=== PATIENT | male | born 1985 | race Two or more races ===

== ENCOUNTER 2024-07-08 20:57 | Emergency (ER) | payer OTHER ==
[~2024-07-08] VITALS: Ht 180.3 cm; Wt 108.9 kg
[2024-07-08] MEDS ORDERED: CEFTRIAXONE SODIUM 2,000 MG VIAL ONE (21:40)
[2024-07-08] MEDS ORDERED: CEFTRIAXONE SODIUM 2,000 MG VIAL IV ONE (21:45)
[2024-07-08 22:29] LABS: PH,URINE 6.5 (5.0-8.0); URINE APPEARANCE Clear; URINE BILIRRUBIN Negative (NEGATIVE); URINE BLOOD Negative; URINE COLOR Yellow; URINE GLUCOSE Negative (NEGATIVE); URINE KETONE Negative (NEGATIVE); URINE LEUKOCYTE Negative; URINE NITRATE Negative; URINE PROTEIN Negative (NEGATIVE)
[2024-07-08 22:32] LABS: URINE WBC 5.8 uL (0.0-23.2)
[2024-07-08 22:35] LABS: URINE CAST 0.14 uL (0.0-1.40); URINE RBC 0.2 uL (0.0-20.8)
[2024-07-08 23:25] LABS: HEMATOCRIT 46.2 % (39.0-48.0); HEMOGLOBIN 15.8 g/dL (13-16.00); MEAN CELL VOLUME 89.1 fL (80.0-100.00); MEAN CORPUSCULAR HEMOGLOBIN 30.5 pg (27.00-32.0); MEAN CORPUSCULAR HGB CONC 34.3 g/dl (32.0-36.0); PLATELET COUNT 249 K/uL (150-450); RED BLOOD COUNT 5.18 M/uL (4.00-6.00); RED CELL DISTRIBUTION WIDTH 12.6 % (11.5-14.5)
[2024-07-08 23:31] LABS: CREATININE SERUM 1.15 mg/dL (0.70-1.30); GFR 71.55; POTASSIUM 3.89 mEq/L (3.5-5.1)
[2024-07-08] MEDS ORDERED: cloNIDine HCL 0.2 MG TABLET PO ONE (23:45)
[2024-07-08 23:49] VITALS: O2SAT 95
[2024-07-08] MEDS ORDERED: CLONIDINE HCL 0.1 MG TABLET PO ONE (23:51)
[2024-07-09 00:45] VITALS: BP 130/80
[2024-07-09] MEDS ORDERED: CEPHALEXIN500 MG PO (01:00)
[2024-07-09] MEDS ORDERED: ZESTRIL20 MG PO (01:00)
[2024-07-09] MEDS ORDERED: KETO10TA2 PO (01:00)
[2024-07-09] MEDS ORDERED: KETOROLAC TROMETHAMINE 10 MG TABLET PO STA (01:02)
[2024-07-09] MEDS ORDERED: KETOROLAC TROMETHAMINE 10 MG TABLET PO ONE (01:02)
== END 2024-07-09 01:06 ==
LOC: ER 20:59
PROVIDERS: Emergency Medicine
DX: R31.9 Hematuria, unspecified (principal); I10 Essential (primary) hypertension